=== PATIENT | female | born 1995 | race Caucasian/White ===

== ENCOUNTER → 2016-08-17 | Outpatient (CLI) | payer MEDICAID ==
--- NOTE | 2016-08-17 12:58 | ECHOS ---
DATE OF SERVICE: 08/17/2016 AGE: 20Y SEX: F HT: 63 WT: 120 lbs. Protocol Puma: X Others: Stress Echo Stage: III Dur. of Exercise: 9 minutes *Heart Rate Blood Pressure *Rest: 101 Rest: 132/70 * *Max. Achieved: 179 Maximum BP: 160/69 85% PMHR: 169 100% PMHR: 199 *METS: 10 INDICATION OF THE STUDY: Palpitations. MEDICATIONS: STRESS DATA: Pretesting physical examination showed heart rate of 101, pressure is 132/70 mmHg. Baseline EKG showed sinus mechanism. The patient exercised on the treadmill according to Puma protocol for a total of 9 minutes and achieved 10 of METs. Max heart rate was 179, which is about 90% of maximum predicted heart rate. Maximum blood pressure was 160/69 mmHg. Clinically, the patient did not have any symptoms of chest pain or discomfort during the testing or in the recovery time. The EKG did not show any significant ST or T wave abnormalities consistent with ischemia. ECHOCARDIOGRAM IMAGES: On echocardiogram images from parasternal long axis view, parasternal short axis view, apical 4 chamber view, apical 2 chamber view, were obtained as the baseline images, at the peak of the heart rate as well as on recovery. The echocardiogram images showed good augmentation in the left ventricular systolic function without any evidence of wall motion abnormalities consistent with ischemia. CONCLUSION: 1. Excellent exercise capacity. 2. Normal EKG in response to exercise. 3. Normal echocardiogram in response to exercise. 4. Essentially normal stress echocardiogram for the patient.
== END | disposition home or self-care (01) ==
LOC: RADNMMAIN 10:16
PROVIDERS: ATTEND Internal Medicine Cardiovascular Disease
DX: R00.2 Palpitations (principal); R55 Syncope and collapse
CPT/HCPCS: 93017; 93350

== ENCOUNTER → 2016-11-12 | Outpatient (CLI) | payer MEDICAID | END | disposition home or self-care (01) | LOC: LABWHC1 10:35 | PROVIDERS: ATTEND Internal Medicine Critical Care Medicine | DX: T78.49XA Other allergy, initial encounter (principal) | CPT/HCPCS: 36415; 82785 ==

== ENCOUNTER → 2017-08-07 | Outpatient (CLI) | payer MEDICAID ==
[2017-08-08 01:51] LABS: HIV AB P24 Non-Reactive (Non-Reactive); HIV P24 AG Non-Reactive (Non-Reactive)
== END | disposition home or self-care (01) ==
LOC: MMGSC 14:38
PROVIDERS: ATTEND Obstetrics & Gynecology
DX: Z20.2 Contact with and (suspected) exposure to infections with a predominantly sexual mode of transmission (principal)
CPT/HCPCS: 36415; 86694; 86695; 86696; 86780; 87340; 87390

== ENCOUNTER 2017-12-04 10:27 | Day surgery (SDC) | payer MEDICAID ==
[2017-11-29 18:05] VITALS: BMI 23.9
[~2017-12-04 10:27] MED LIST: LACTATED RINGERS 1,000 ML IV SCH; LIDOCAINE 1% 20 ML VIAL (10MG/ML) FOR IV START INTRADERMA PRN
[2017-12-04] MEDS ORDERED: LACTATED RINGERS 1,000 ML IV ONE (10:53)
[2017-12-04 10:59] VITALS: RESP 18; TEMP 98.1
[2017-12-04] MEDS ORDERED: LIDOCAINE 1% INJ 10MG/ML (20 ML MDV) ONE (11:38)
[2017-12-04] MEDS ORDERED: PROPOFOL 10 MG/ML 20 ML VIAL IV ONE (11:38)
--- NOTE | 2017-12-04 11:50 | P.PCN ---
Date of Procedure: 12/04/17 Procedure(s) Performed: BRIEF HISTORY: Patient is a 22-year-old pleasant white female, scheduled for an elective colonoscopy as a part of value should of intermittent rectal bleeding for the last 6 months duration. She has one to 2 bowel movements daily and has rectal bleeding almost 3-4 times a week. PROCEDURE PERFORMED: Colonoscopy. PREOPERATIVE DIAGNOSIS: Rectal bleeding for the last 6 months duration. IV sedation per Anesthesia. PROCEDURE: After informed consent was obtained, the patient, was brought into the endoscopy unit. IV sedation was administered by Anesthesia under continuous monitoring. Digital rectal examination was normal. Initially the Olympus CF- 160 flexible video colonoscope was then inserted in the rectum, gradually advanced into the cecum without any difficulty. Careful examination was performed as the scope was gradually being withdrawn. Ileocecal valve and the appendiceal orifice were visualized and appeared normal. Prep was excellent. Mucosa of the cecum, ascending colon, transverse colon, descending colon, sigmoid colon, and rectum appeared normal. Retroflexion was performed in the rectum and no lesions were seen. The patient tolerated the procedure well. IMPRESSION: Normal-appearing colon from rectum to cecum with no evidence of colorectal neoplasia. RECOMMENDATIONS: Findings of this examination were discussed with the patient as well as her family. She was advised to be a high-fiber diet and take fiber supplements on a regular basis and avoid straining and constipation.
[2017-12-04 12:16] VITALS: BP 126/86; PULSE 77
== END 2017-12-04 12:31 | disposition home or self-care (01) ==
LOC: ORWHC2ENDO 10:27
PROVIDERS: ATTEND Internal Medicine Gastroenterology
DX: K62.5 Hemorrhage of anus and rectum (principal); K21.9 Gastro-esophageal reflux disease without esophagitis; I49.3 Ventricular premature depolarization; J45.909 Unspecified asthma, uncomplicated; Z79.3 Long term (current) use of hormonal contraceptives; Z79.899 Other long term (current) drug therapy; Z79.51 Long term (current) use of inhaled steroids
CPT/HCPCS: 81025; 45378; J2001; J2704

== ENCOUNTER → 2017-12-26 | Outpatient (CLI) | payer MEDICAID ==
[2017-12-26 13:31] LABS: Basophils % (A) 0 %; Eosinophils # (A) 0.2 k/uL (0-0.7); Eosinophils % (A) 4 %; HCT 40.2 % (34.0-46.0); HGB 13.4 gm/dL (11.4-16.0); Lymphocytes # (A) 2.1 k/uL (1.0-4.8); Lymphocytes % (A) 41 %; MCH 29.2 pg (25.0-35.0); MCHC 33.4 g/dL (31.0-37.0); MCV 87.4 fL (80.0-100.0); Mean Platelet Volume 6.9; Monocytes # (A) 0.3 k/uL (0-1.0); Monocytes % (A) 5 %; Neutrophils # (A) 2.4 k/uL (1.3-7.7); Neutrophils % (A) 46 %; Platelet Count 234 k/uL (150-450); RDW 12.8 % (11.5-15.5); WBC 5.1 k/uL (3.8-10.6)
== END | disposition home or self-care (01) ==
LOC: LABWHC1 12:43
PROVIDERS: ATTEND Internal Medicine
DX: J06.9 Acute upper respiratory infection, unspecified (principal)
CPT/HCPCS: 36415; 85025

== ENCOUNTER → 2018-10-08 | Outpatient (CLI) | payer MEDICAID ==
[2018-10-09 00:42] LABS: HIV 1 AB Non-Reactive (Non-Reactive); HIV AB P24 Non-Reactive (Non-Reactive); HIV P24 AG Non-Reactive (Non-Reactive)
== END ==
LOC: LABWHC1 16:48
PROVIDERS: ATTEND Clinical Nurse Specialist Women's Health
DX: Z09 Encounter for follow-up examination after completed treatment for conditions other than malignant neoplasm (principal); Z20.2 Contact with and (suspected) exposure to infections with a predominantly sexual mode of transmission
CPT/HCPCS: 36415; 86780; 87340; 87390

== ENCOUNTER → 2018-10-22 | Outpatient (CLI) | payer MEDICAID ==
[2018-10-22 17:00] LABS: Albumin/Globulin Ratio 2.94 (1.60-3.17); Anion Gap 9.8 mmol/L (4.00-12.00); Calcium 9.8 mg/dL (8.7-10.3); Carbon Dioxide 20.2 mmol/L (21.6-31.8); Globulin 1.7 g/dL (1.6-3.3); Total Bilirubin 0.7 mg/dL (0.3-1.2); Total Protein 6.7 g/dL (6.2-8.2)
[2018-10-22 17:01] LABS: Magnesium 2.1 mg/dL (1.5-2.4)
== END | disposition home or self-care (01) ==
LOC: LABWHC1 10:22
PROVIDERS: ATTEND Internal Medicine Interventional Cardiology
DX: R00.2 Palpitations (principal)
CPT/HCPCS: 36415; 80053; 83735; 84443

== ENCOUNTER → 2018-11-10 | Outpatient (CLI) | payer MEDICAID ==
--- NOTE | 2018-11-10 13:28 | EST ---
EXERCISE STRESS DATE OF SERVICE: 11/10/2018 AGE: 23 SEX: Female HT: 63" WT: 117 pounds PROTOCOL: Puma STAGE: IV DURATION OF EXERCISE: 10 minutes HEART RATE REST: 91 BLOOD PRESSURE REST: 120/81 MAXIMUM HEART RATE ACHIEVED: 182 MAXIMUM BLOOD PRESSURE: 175/87 85% MPHR: 167 100% MPHR: 196 METS: 11.7 INDICATIONS: Palpitations CLINICAL INFORMATION: The patient was exercised for a total period of 10 minutes. The peak heart rate of 182 was achieved. Maximum blood pressure of 175/87 mmHg was noted. Resting EKG shows normal sinus rhythm with normal TX interval and QRS duration and normal ST-T waves. No ST-segment depression suggestive of ischemia is noted. The patient did not complain of any chest pain during the test. No dysrhythmias are noted. FINAL IMPRESSION: 1. This exercise test is not suggestive of ischemia. 2. Patient did not complain of any anginal pain during the test. 3. No dysrhythmias are noted. 4. Patient's exercise tolerance is normal. MMODL / IJN: [id number] /
--- NOTE | 2018-11-11 11:09 | ECHOF ---
Referral Reason:R002 palpitations MEASUREMENTS -------- HEIGHT: 160.0 cm WEIGHT: 52.6 kg BP: RVIDd: 2.4 cm (< 3.3) IVSd: 1.0 cm (0.6 - 1.1) LVIDd: 4.3 cm (3.9 - 5.3) LVPWd: 0.8 cm (0.6 - 1.1) IVSs: 1.1 cm LVIDs: 3.1 cm LVPWs: 1.4 cm LA Diam: 2.6 cm (2.7 - 3.8) LAESV Index (A-L): 15.14 ml/m Ao Diam: 2.7 cm (2.0 - 3.7) AV Cusp: 2.2 cm (1.5 - 2.6) MV EXCURSION: 22.191 mm (> 18.000) MV EF SLOPE: 120 mm/s (70 - 150) EPSS: 0.3 cm MV E Moustapha: 0.79 m/s MV DecT: 202 ms MV A Moustapha: 0.56 m/s MV E/A Ratio: 1.41 RAP: 5.00 mmHg RVSP: 17.71 mmHg FINDINGS -------- Resting bradycardia (HR<60bpm). This was a technically good study. The left ventricular size is normal. Left ventricular wall thickness is normal. Overall left vent ricular systolic function is low-normal with, an EF between 50 - 55 %. The right ventricle is normal in size. Normal LA size by volume 22+/-6 ml/m2. The right atrium is normal in size. Interatrial and interventricular septum intact. The aortic valve is trileaflet and appears structurally normal. There is trace to mild mitral regurgitation. Mild tricuspid regurgitation present. Right ventricular systolic pressure is normal at < 35 mmHg. Trace/mild (physiologic) pulmonic regurgitation. The aortic root size is normal. Normal inferior vena cava with normal inspiratory collapse consistent with estimated right atrial pre ssure of 5 mmHg. There is no pericardial effusion. CONCLUSIONS -------- 1. Resting bradycardia (HR<60bpm). 2. This was a technically good study. 3. The left ventricular size is normal. 4. Left ventricular wall thickness is normal. 5. Overall left ventricular systolic function is low-normal with, an EF between 50 - 55 %. 6. The right ventricle is normal in size. 7. Normal LA size by volume 22+/-6 ml/m2. 8. The right atrium is normal in size. 9. Interatrial and interventricular septum intact. 10. The aortic valve is trileaflet and appears structurally normal. 11. There is trace to mild mitral regurgitation. 12. Mild tricuspid regurgitation present. 13. Right ventricular systolic pressure is normal at < 35 mmHg. 14. Trace/mild (physiologic) pulmonic regurgitation. 15. The aortic root size is normal. 16. Normal inferior vena cava with normal inspiratory collapse consistent with estimated right atrial pressure of 5 mmHg. 17. There is no pericardial effusion. TOWER HOIST OPERATOR: Krystal Narayanan RDCS
--- NOTE | 2018-12-02 23:56 | EM ---
EVENT MONITOR FOURTEEN-DAY EVENT MONITOR: The patient was monitored for 14 days. The baseline rhythm appeared to be a sinus mechanism. The patient did have multiple episodes of sinus tachycardia with a heart rate between 170 and 180 beats per minute, but the patient was exercising during these episodes. She did have symptoms of being short of breath as well as dizziness and lightheadedness during the sinus tachycardia with exercise. No evidence of any profound sinus bradycardia seen. The patient had no evidence of any ventricular arrhythmia. There is no evidence of any advanced AV block seen. There is no evidence of any sinus pause or sinus arrest seen. CONCLUSION: 1. This is a 14-day event monitor. 2. The baseline rhythm is a sinus mechanism. 3. The patient did have multiple episodes of sinus tachycardia, and most of the tachycardia was during exercise where the patient was symptomatic with dizziness and lightheadedness and shortness of breath. 4. No evidence of any profound sinus bradycardia noted. 5. There is no evidence of any advanced AV block seen. 6. There is no evidence of any sinus pause or sinus arrest. 7. Most of the patient's symptoms were reported during exercise and were associated with sinus tachycardia. MMODL / IJN: [id number] /
== END | disposition home or self-care (01) ==
LOC: RADNMMAIN 10:38
PROVIDERS: ATTEND Internal Medicine Interventional Cardiology
DX: I08.1 Rheumatic disorders of both mitral and tricuspid valves (principal); R00.0 Tachycardia, unspecified; R00.1 Bradycardia, unspecified; R00.2 Palpitations
CPT/HCPCS: 93017; 93270; 93306

== ENCOUNTER → 2020-03-31 | Outpatient (CLI) | payer MEDICAID ==
--- NOTE | 2020-04-07 20:18 | EEG ---
ELECTROENCEPHALOGRAM REPORT DATE OF STUDY: 03/31/2020. EEG OBJECTIVE: This is a digitally acquired EEG utilizing 10-20 international system placement with standard montages able to be digitally reformatted for at least 20 minutes' duration in the evaluation of a 24-year-old female for multiple syncopal episodes to rule out epileptiform activity. EEG FINDINGS: The resting alert record is characterized as 10 hertz posterior-dominant background activity which is well developed, formed and sustained of 20-30 microvolts and radiating to the central head regions bilaterally. Bifrontal low voltage fast activity predominates. There were no gross hemispheric asymmetries appreciated. There are no areas of focal slow waves. The background attenuates symmetrically on eye opening. Photo stimulus reveals an excellent symmetric driving response. Hyperventilation did not add any new features to the record. There was spontaneous drowsiness which progressed into stage II sleep, noted by symmetric vertex sharp waves and normal K complexes. There were occasional sharp waves noted, but no paroxysmal discharges, epileptiform activity or electrographic seizures noted. EKG rhythm strip was regular throughout. IMPRESSION: This is an unremarkable EEG for the age and state of the patient. No epileptiform activity noted. One EEG does not rule out the possibility of epileptiform activity. MMODL / IJN: [id number] /
== END | disposition home or self-care (01) ==
LOC: NEUROMAIN 08:10
PROVIDERS: ATTEND Psychiatry & Neurology Neurology
DX: G40.89 Other seizures (principal)
CPT/HCPCS: 95816

== ENCOUNTER → 2020-04-12 | Outpatient (CLI) | payer MEDICAID ==
[2020-04-12 15:55] LABS: Basophils # (A) 0.1 k/uL (0-0.2); Basophils % (A) 1 %; Eosinophils # (A) 0.2 k/uL (0-0.7); Eosinophils % (A) 4 %; HCT 40.5 % (34.0-46.0); Lymphocytes # (A) 2.7 k/uL (1.0-4.8); Lymphocytes % (A) 46 %; MCH 29.1 pg (25.0-35.0); Mean Platelet Volume 7.6; Monocytes # (A) 0.2 k/uL (0-1.0); Monocytes % (A) 4 %; Neutrophils # (A) 2.5 k/uL (1.3-7.7); Neutrophils % (A) 44 %; Platelet Count 199 k/uL (150-450); RBC 4.45 m/uL (3.80-5.40); RDW 13.2 % (11.5-15.5); WBC 5.7 k/uL (3.8-10.6)
== END | disposition home or self-care (01) ==
LOC: LABPAT 14:48
PROVIDERS: ATTEND Obstetrics & Gynecology
DX: Z01.818 Encounter for other preprocedural examination (principal); N87.1 Moderate cervical dysplasia
CPT/HCPCS: 85025

== ENCOUNTER 2020-05-03 09:30 | Day surgery (SDC) | payer MEDICAID ==
[2020-04-29 12:58] VITALS: BMI 20.9
--- NOTE | 2020-05-02 12:43 | HP ---
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 She is scheduled for cervical cold knife cone biopsy. ALLERGIES: DARVOCET causes nausea. MEDICATIONS: Oral contraceptive pills daily, Adderall XR 15 mg daily, and Zyrtec as needed. PAST MEDICAL HISTORY: Attention deficit disorder, reflux, irritable bowel syndrome, migraine headaches. PAST SURGICAL HISTORY: EGD and colonoscopy, arthroscopic knee surgery, tonsillectomy. 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 She is on oral contraceptive pills. She has the above history of abnormal Pap smears. FAMILY HISTORY: Noncontributory. SOCIAL HISTORY: She is single. She is a former tobacco user. Denies alcohol or recreational drugs. REVIEW OF SYSTEMS: She denies fevers, chills, nausea, vomiting, shortness of breath, chest pain, abdominal pain, abnormal vaginal bleeding or discharge. PHYSICAL EXAM: Height 5 feet 4 inches, weight 120 pounds, blood pressure 122/84, pulse 107. In general, this is a pleasant young female in no acute distress. HEENT: Exam is unremarkable with no palpable lymphadenopathy or thyromegaly. The lungs are clear to auscultation bilaterally and the heart is of regular rate and rhythm. The abdomen is slim, soft and nontender. On pelvic examination, she has normal female external genitalia without lesions or irritation. On pelvic examination, the cervix appears normal with no visible lesions, active bleeding or discharge. On bimanual examination, the uterus is small, freely mobile and in the midline with no adnexal masses palpable. 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 She is scheduled for cervical cold knife cone biopsy. This procedure and its risks have been reviewed with the patient in detail. Risks that include, but are not limited to, bleeding, transfusion, infection, injury to uterus, bowel, or bladder. Patient understands these risks and agrees to proceed. She is scheduled for the above- named procedure on 05/03/2020. MMODL / IJN: [id number] /
[~2020-05-03 09:30] MED LIST changes: +DEXAMETHASONE SOD PHOSPHATE 4 MG/ML 1 ML VIAL IV ONE; +HYDROmorphone 0.5 MG/0.5 ML SYRINGE IVP PRN; -LIDOCAINE 1% 20 ML VIAL (10MG/ML) FOR IV START INTRADERMA PRN; +MIDAZOLAM 2 MG/2 ML VIAL IV PRN; +ONDANSETRON 4 MG/2 ML VIAL IVP ONE; +Pre Op ABX Message 1 EACH MISC MISCELLANE ONE; +SCOPOLAMINE 1.5MG/72HR PATCH TRANSDERM ONE
[2020-05-03] MEDS ORDERED: LACTATED RINGERS 1,000 ML IV ONE (10:13)
[2020-05-03] MEDS ORDERED: fentaNYL (PF) 50 MCG/ML 2 ML AMP ONE (11:18)
[2020-05-03] MEDS ORDERED: PROPOFOL 10 MG/ML 20 ML VIAL IV ONE (11:18)
[2020-05-03] MEDS ORDERED: KETOROLAC 15 MG/ML 1 ML VIAL ONE (11:18)
[2020-05-03] MEDS ORDERED: MIDAZOLAM 2 MG/2 ML VIAL ONE (11:18)
[2020-05-03] MEDS ORDERED: FERRIC SUBSULFATE (MONSELS) JAR TOPICAL ONE (11:18)
[2020-05-03] MEDS ORDERED: LIDOCAINE 1% INJ 10MG/ML (20 ML MDV) ONE (11:18)
[2020-05-03] MEDS ORDERED: LIDOCAINE 1%-EPI 1:100,000 20 ML VIAL SQ ONE ×2 (11:19)
[2020-05-03] MEDS ORDERED: IODINE/POTASS IOD (LUGOLS) BOTTLE TOPICAL ONE (11:19)
--- NOTE | 2020-05-03 11:53 | P.OP ---
Date of Procedure: 05/03/20 Preoperative Diagnosis: LIVIA-2 on endocervical curettage Postoperative Diagnosis: Same Procedure(s) Performed: Cervical cold knife cone biopsy Anesthesia: MAC Surgeon: Zelda Stark Estimated Blood Loss (ml): 5 IV fluids (ml): 50 Urine output (ml): 300 Pathology: other (Cervical cold knife cone biopsy) Condition: stable Disposition: PACU Indications for Procedure: LIVIA-2 on endocervical curettings Operative Findings: Very small nulliparous cervix with no gross visible lesions. Description of Procedure: After the patient and her family were met in the preoperative holding area and all questions were answered, she was taken to the operating room anesthetic was administered without incident. She was positioned, prepped and draped in the dorsal lithotomy position. Bladder was drained for approximately 50 mL of clear urine. Speculum was placed in the vagina and the cervix was observed. It was grasped anteriorly with a single-tooth tenaculum. Of note the entire cervix was only approximately 2.5 x 2.5 cm. Lugol's is applied and a very small transformation zone is appreciated. A paracervical block was placed in the usual fashion with lidocaine plus epinephrine. An 11 blade scalpel was utilized to very carefully incised the cervix circumferentially about the squamocolumnar junction. To a depth of approximately 1 cm. This was then angled in creating the cone shaped biopsy which then was removed. Of note this is a small specimen secondary to be extremely small size of the nulliparous cervix. Care was taken not to remove more than unnecessary of the cervix as well. The specimen was placed on the table for pathology. Bovie cautery was seen on then utilized to cauterize the base of the biopsy site as well as the external margins. Hemostasis was easily achieved. The cervix was observed and no active bleeding was noted. The instruments were then removed from the vagina and the patient was awoken from anesthetic without incident. All counts reported as to me as correct by the operating room staff. Patient was transported to recovery room in good condition.
[2020-05-03 12:03] VITALS: TEMP 97.8
[2020-05-03 12:53] VITALS: RESP 20
[2020-05-03] MEDS ORDERED: HYDROmorphone 0.5 MG/0.5 ML SYRINGE IVP ONE (13:03)
[2020-05-03 13:35] VITALS: BP 121/83; PULSE 85
[2020-05-03] MEDS ORDERED: ACETAMINOPHEN TAB 500 MG TAB PO ONE (13:35)
[2020-05-03] MEDS ORDERED: ACETAMINOPHEN TAB 500 MG TAB ONE (13:38)
== END 2020-05-03 13:59 | disposition home or self-care (01) ==
LOC: OR 09:30
PROVIDERS: ATTEND Obstetrics & Gynecology
DX: N87.1 Moderate cervical dysplasia (principal); G43.909 Migraine, unspecified, not intractable, without status migrainosus; Z88.5 Allergy status to narcotic agent; Z98.890 Other specified postprocedural states; Z79.899 Other long term (current) drug therapy; K21.9 Gastro-esophageal reflux disease without esophagitis; F98.8 Other specified behavioral and emotional disorders with onset usually occurring in childhood and adolescence; K58.9 Irritable bowel syndrome, unspecified; Z87.891 Personal history of nicotine dependence
CPT/HCPCS: 81025; 88307; 57520; J2250; J1100; J2405; J2001; J3010; J1885; J2704; J1170